=== PATIENT | female | born 1970 | race Caucasian/White ===

== ENCOUNTER 2016-06-15 15:47 | Emergency (ER) | payer BC, OTHER ==
[2016-06-15 15:55] VITALS: BP 112/62
--- OUTSIDE RECORDS SUMMARY | 2016-06-15 17:13 | XMS REPORT | Continuity of Care Document ---
:1970 Author Organization [facility] ([facility]) Address [address] [address] Phone [phone] Care Team Providers Name Role Phone David Jordan Primary Care Provider [phone] Source Comments This disclosure is being made pursuant to the Care Everywhere program, applicable federal and state laws, and may not contain all informaitonavailable regarding this patient.[facility] ([facility]) Active Allergies and Adverse Reactions Allergen Noted Date Severity Reactions Comments Cephalexin 01/05/2015 Urticaria (Hives) Other Agent 01/05/2015 Urticaria (Hives) Unknown name: epidural medication for Current Medications Prescription Sig. Disp. Refills Start Date End Date Status gabapentin 600 mg tablet Take 300 mg by Active mouth 2 times daily ACETAMINOPHEN (TYLENOL PO) Take by mouth as Active needed ibuprofen PO Take by mouth as Active needed Active Problems Problem Noted Date Neck pain 01/05/2015 Social History Tobacco Use Types Packs/Day Years Used Date Never Smoker Smokeless Tobacco: Never Used Alcohol Use Drinks/Week oz/Week Comments Yes 14 Cans of beer Last Filed Vital Signs Vital Sign Reading Time Taken Blood Pressure 114/69 01/05/2015 11:06 AM RESOLUTION SPECIALIST Pulse 88 01/05/2015 11:06 AM RESOLUTION SPECIALIST Temperature 36.9 C (98.4 F) 01/05/2015 11:06 AM RESOLUTION SPECIALIST Respiratory Rate - - Height 1.689 m (5' 6.5") 01/05/2015 11:06 AM RESOLUTION SPECIALIST Weight 70.1 kg (154 lb 8.7 oz) 01/05/2015 11:06 AM RESOLUTION SPECIALIST Body Mass Index 24.57 01/05/2015 11:06 AM RESOLUTION SPECIALIST Oxygen Saturation - - Plan of Care Health Maintenance Due Date Last Done Comments Hepatitis B Vaccine (1 of 3 - Primary Series) 1970 Tdap Vaccine 1980 Lipid Disorder Screening 07/09/1987 MMR Vaccine 07/09/1987 Td Vaccine 07/09/1987 Cervical Cancer Screening 07/09/1999 Mammogram 2009 Influenza Vaccine: Seasonal (#1) 09/07/2015 Results from Last 3 Months Not on file
[2016-06-15 17:29] LABS: Hematocrit 38.1 % (37.0-47.0); Hemoglobin 12.7 gm/dL (12.5-16.0); Mean Cell Volume 92.3 fl (78-100); Mean Corpuscular Hemoglobin 30.8 pg (27-31); Mean Corpuscular Hgb Conc 33.3 g/dl (32-36); Mean Platelet Volume 9.1 fl (6.0-9.5); Neutrophil # 3.1 K/mm3 (1.3-6.0); Neutrophil % 48.7 % (42-75.0); Platelet Count 404 K/mm3 (150-450); Red Blood Count 4.13 M/mm3 (4.2-5.4); Red Cell Distribution Width 13.2 % (11.5-14.0); White Blood Count 6.4 K/mm3 (4.0-10.5)
--- NOTE | 2016-06-15 17:41 | ERNOTE ---
Upper Extremity HPI - Narrative Date of Service: 06/15/16 - General Extremities Pain Location: forearm: left Time Seen by Provider: 06/15/16 16:31 Source: patient Exam Limitations: no limitations - Immun/Allergies/Home Medications Immunizations: IMMUNIZATION HX Immunizations Up to Date Yes History of Influenza Vaccine No Allergies/Adverse Reactions: Allergies Allergy/AdvReac Type Severity Reaction Status Date / Time cephalexin [From Keflex] Allergy Mild Hives Verified 06/15/16 15:55 Home Medications: HOME MEDICATIONS Sulfamethoxazole/Trimethoprim [Bactrim Ds] 1 tab PO BID #28 tab 06/15/16 [Last Taken Unknown] oxyCODONE HCL/ACETAMINOPHEN [Percocet 5 MG/325 MG] 1 tab PO Q4H PRN #20 tab 11/22 [Last Taken Unknown] - History of Present Illness Narrative: Pt. comes in with c/o L forearm abscess for two days. Pt. denies any fevers, SOB, CP, NVD, but does state taht she has drainage from the wound. Pt. went to 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 needed it I and D. Review of Systems - Review of Systems Constitutional: Present: no symptoms reported. Absent: fever, chills, weakness , fatigue, malaise EYE: Present: no symptoms reported ENT: Present: no symptoms reported. Absent: nose pain, nose congestion, nasal drainage Respiratory: Present: no symptoms reported Cardiology: Present: no symptoms reported. Absent: chest pain, palpitations, edema Gastrointestinal/Abdominal: Present: no symptoms reported. Absent: nausea, vomiting, diarrhea Genitourinary: Present: no symptoms reported. Absent: frequency, pain, decreased urinary output Musculoskeletal: Present: no symptoms reported. Absent: back pain, joint pain Skin: Present: lumps - L forearm Neurological: Present: no symptoms reported. Absent: headache, dizziness/light- headedness, numbness, tingling All Other Systems: All systems neg except as marked - Patient's Past Medical History Patient History - Medical: No pertinent hx - Social History Smoking Status: Never smoker Have you smoked in the past 12 months: No - Immunizations Immunizations Up to Date: Yes History of Influenza Vaccine: No Physical Exam - Physical Exam General Appearance: Present: wd/wn, alert, no apparent distress Eye Exam: Normal inspection: bilateral, PERRL: bilateral, EOMI: bilateral Ears, Nose, Throat: Present: normal ENT inspection, normal pharynx Neck: Present: normal inspection, nontender. Absent: lymphadenopathy (R), lymphadenopathy (L) Respiratory: Present: no respiratory distress, normal breath sounds, no accessory muscle use, chest nontender, lungs clear Cardiovascular/Chest: Present: regular rate, rhythm, no murmur, normal peripheral pulses Gastrointestinal/Abdominal: Present: normal bowel sounds, nontender, nondistended, soft, no organomegaly Back Exam: Present: normal inspection, normal range of motion, no CVA tenderness , no vertebral tenderness Extremity Exam: Present: normal range of motion, no edema Neurological Exam: Present: alert, oriented, normal mood/affect, no motor/ sensory deficits Skin Exam: Present: warm/dry, other - 3cm lump L forearm with fluctuance and no drainage. Redness 1cm around lump. Lymphatic Exam: Present: no adenopathy ED Progress - Results and Orders Patient's Lab Results:: I have reviewed the patient's lab results. - Vital Signs Patient's Vital Signs:: I have reviewed the patient's vital signs. Vital Signs: Vital Signs 06/15/16 15:50 Temperature 36.6 C Pulse Rate 86 Respiratory 20 Rate Blood Pressure 112/62 O2 Sat by Pulse 99 Oximetry - Progress/Reassessment Chief Complaint: Wrist Injury/Pain Procedures Left Distal Arm Anesthesia: 1% Lidocaine I & D Prep: betadine prep Blade Size: 15 Findings and Actions: purulent drainage moderate, probed/breakup loculation, cultures obtained Estimated blood loss (ml): 10 Complications: Pt sachi procedure well Departure Clinical Impression: Abscess Cellulitis Qualifiers: Site of cellulitis: extremity Site of cellulitis of extremity: upper extremity Laterality: left Qualified Code(s): L03.114 - Cellulitis of left upper limb - Departure Disposition: Home self-care Condition: Good Instructions: Abscess, [id number], Cellulitis, Adult, [id number] Additional Instructions: Please follow up with primary provider in 2-3 days. Referrals: David Jordan MD [Primary Care Provider] - Prescriptions: Sulfamethoxazole/Trimethoprim [Bactrim Ds] 1 tab PO BID #28 tab oxyCODONE HCL/ACETAMINOPHEN [Percocet 5 MG/325 MG] 1 tab PO Q4H PRN #20 tab PRN Reason: Pain
[2016-06-15 17:42] LABS: Albumin * 3.5 gm/dl (3.4-5.0); Anion Gap 13.5 mmol/L (6.8-13.8); BUN/Creatinine Ratio 11.2 (9.0-21.6); Bilirubin, Total 0.2 mg/dL (0.0-1.1); Ca. Corrected For Albumin 8.9 mg/dL (8.4-10.2); Calcium * 8.8 mg/dL (7.9-10.9); Carbon Dioxide 28.5 mmol/L (24-32.6); Total Protein 7.4 gm/dL (6.2-8.2)
== END 2016-06-15 17:53 | disposition home or self-care (01) ==
LOC: ER 15:47
PROC: 0H9EXZZ Drainage of Left Lower Arm Skin, External Approach (ICD-10-PCS; principal; 2016-06-15)
DX: L03.114 Cellulitis of left upper limb (principal); L02.414 Cutaneous abscess of left upper limb